=== PATIENT | female | born 1990 | race Caucasian/White ===

== ENCOUNTER 2017-09-15 11:36 | Day surgery (SDC) | payer BC ==
[2017-09-15 12:14] VITALS: BP 114/69; TEMP 98.6; BMI 30.4
--- NOTE | 2017-09-15 12:36 | PDOC.LDHP ---
Labor and Delivery H&P Chief complaint: other (headaches and vision changes) HPI: 27 yo G1 @ 35.1wks presents with vision changes and a headache since this morning. Denies hx of hypertension. Describes her headache as posterior, dull, constant and her vision changes as seeing spots. Denies hx of chronic hypertension. Denies compications in . She has a remote hx of a DVT which she taks lovenox for. Denies LOF, ctx, vaginal bleeding, discharge, dysuria. Endorses good FM. Current gestational age (weeks): 35 (35.1) Grav: 1 Para: 0 Current complications: other (Hx of DVT on lovenox) Past Medical History: Hx of DVT on lovenox Current medications: other (Lovenox) Previous surgical history: none Allergies/Adverse Reactions: Allergies Allergy/AdvReac Type Severity Reaction Status Date / Time amoxicillin Allergy Severe Rash Verified 09/15/17 12:14 Penicillins Allergy Severe Rash Verified 09/15/17 12:14 Social history: none - Physical Exam Vital signs reviewed and normal: yes General: NAD, resting Heart: RRR Lungs: CTAB Abdomen: gravid Extremeties: trace edema FHT: category 1 [place] contractions every: 3 - Plan -: 27 yo G1 @ 35.1wks presents with vision changes and a headache since this morning, admitted for obs with concern for preE. 1.)sIUP- -pt is hilda every 3 minutes, but she does not feel her contractions -will encourage PO hydration -will order a UA to look for asymptomatic bacteruria 2.)Migraine -bp wnl -UA to evaluate protein level -tylenol and reglan prn headache - Review of Systems General: reports: other (headache). denies: fever/chills, weight/appetite/ sleep changes Eyes: reports: vision changes ENT: denies: nasal congestion, rhinorrhea Respiratory: denies: cough, congestion, shortness of breath Cardiovascular: denies: chest pain, palpitation, edema Gastrointestinal: denies: nausea, vomiting, diarrhea, abdominal pain Genitourinary: denies: dysuria, polyuria Skin: denies: rashes, lesions, jaundice Musculoskeletal: denies: pain, tenderness Neurological: denies: numbness, syncope Psychological: denies: anxiety, depression
[2017-09-15 13:32] LABS: Bilirubin Negative (Negative); Blood, Urine Negative (Negative); Clarity CLEAR (Clear); Glucose, Urine (Dipstick) Negative (Negative); Leukocyte Negative (Negative); Nitrite Negative (Negative); Protein, Urine (Dipstick) Negative (Neg-Trace); Specific Gravity, Urine 1.003 (1.002-1.036); Urobilinogen 0.2 mg/dL (0.2-1.0)
[2017-09-15 13:40] LABS: Bacteria/HPF None Seen HPF (None Seen); Hyaline Casts/LPF 0-3 HYALINE CAST LPF (0-3 Hyaline); Pathc Cast-AUWi Flag 0.14 (0-2.49); RBC/HPF None Seen HPF (0-3); Squamous Epithelial 0-3 HPF (0-3); WBC/HPF None Seen HPF (0-3)
== END 2017-09-15 14:18 | disposition home or self-care (01) ==
LOC: L&D/OP 11:36
PROVIDERS: ATTEND Obstetrics & Gynecology
DX: O99.353 Diseases of the nervous system complicating pregnancy, third trimester (principal); G43.909 Migraine, unspecified, not intractable, without status migrainosus; O99.89 Other specified diseases and conditions complicating pregnancy, childbirth and the puerperium; H53.9 Unspecified visual disturbance; Z86.718 Personal history of other venous thrombosis and embolism; Z79.899 Other long term (current) drug therapy; Z88.0 Allergy status to penicillin; Z3A.35 35 weeks gestation of pregnancy
CPT/HCPCS: 81001; 99283

== ENCOUNTER 2017-09-27 20:30 | Day surgery (SDC) | payer BC ==
[2017-09-27 20:58] VITALS: BP 123/72; TEMP 99.3; BMI 30.5
--- NOTE | 2017-09-27 22:31 | PDOC.EVN ---
Event Note - Event Note Event Note: H&P Dictated In brief, here for R/O labor at 36 weeks 6 days. Patient on UFH 10,000 units BID for HX DVT on OCPs in 2011 CX was /-2/C/I, which was unchanged from friday. OK for outpatient care. Info on UFH given, per ACOG, by me.
--- NOTE | 2017-09-27 22:59 | HP ---
TIME OF EVALUATION: 2200 to 2220 hours. TIME OF DICTATION: 2225 hours. LOCATION: Labor and Delivery Triage REASON FOR EVALUATION: Suspected onset of labor, the patient on unfractionated heparin. HISTORY OF PRESENT ILLNESS: In brief, this is a patient of Dr. Eaton, who is a 27-year-old at 36 weeks and 6 days, here for possible contractions. She was checked in the office on Friday and sh e was 2 cm dilated, 80% effaced, -1 station. She is on unfractionated heparin 10,000 units b.i.d. fo r history of a DVT in her cath in 2011 when she was on control pills. She was previously on Lo venox and switched to unfractionated heparin at 36 weeks per protocol. PAST MEDICAL HISTORY: Significant for the DVT in 2011 while on estrogen containing contraception. PAST SURGICAL HISTORY: Knee surgeries. SOCIAL HISTORY: AMOXICILLIN and PENICILLIN. OB HISTORY: She is a primigravida with an EDC of 10/19/2017. PHYSICAL EXAMINATION: VITAL SIGNS: Blood pressure 122/72, pulse is 80, temperature is 99.3. GENERAL: She is in no acute distress. The uterus is soft and nontender. There is no evidence of va ginal bleeding or gross evidence of rupture. Cervical exam by me reveals cervix of 2/80/-2/cephalic/ intact with no vaginal bleeding. This exam is basically unchanged from what she was in the office by her report. Monitors heart tones are in the 140s to 150s with moderate variability and aceler ations. There is no pathological decelerations. Intrapartum, this was classified as category 1. Th ere is no contractions that are seen on tocodynamometer that are suspicious for labor. ASSESSMENT: 1. This is a patient with threatened labor at 36 weeks and 6 days, currently on unfractionat ed heparin for deep venous thrombosis prophylaxis. She is on 10,000 units b.i.d. 2. There is no evidence of active labor. 3. I reviewed with her the ACOG thrombophilia guidance, which recommends unfractionated heparin at 3 6 weeks with possible reversal if onset of labor occurs and/or scheduled induction to better time dis continuation of unfractionated heparin. We also discussed protamine sulfate. 4. I advised the patient to that as there is no evidence of active labor at this time, she continues taking her prophylaxis and that she returns for evaluation within 48 hours (which is Friday) with he r physician to discuss timing of delivery.
== END 2017-09-27 22:30 | disposition home or self-care (01) ==
LOC: L&D/OP 20:30
PROVIDERS: ATTEND Obstetrics & Gynecology
DX: O60.03 Preterm labor without delivery, third trimester (principal); Z3A.36 36 weeks gestation of pregnancy
CPT/HCPCS: 99283

== ENCOUNTER 2017-09-30 12:05 | Observation (INO) | payer BC ==
[2017-09-30] MEDS: Lactated Ringer's 1,000 ML IV SCH ×3 (12:55→19:40)
[2017-09-30] MEDS ORDERED: Ondansetron HCl/PF 4 MG/2 ML Vial ONE (13:03)
--- NOTE | 2017-09-30 13:13 | PDOC.LDHP ---
Labor and Delivery H&P Chief complaint: contractions, other HPI: 27 yo WF presents c/o UCs, nausea and emesis since this AM. Current gestational age (weeks): 37 Due date: 10/19/17 Dating criteria: last menstrual period Grav: 1 Para: 0 Current complications: other (h/o DVT 2011, currently on heparin 10K BID, last dose this AM.) Abnormal US findings: No Past Medical History: DVT Current medications: pre-vladimir vitamins, other (Heparin as above) Previous surgical history: other (knee x4) Allergies/Adverse Reactions: Allergies Allergy/AdvReac Type Severity Reaction Status Date / Time amoxicillin Allergy Severe Rash Verified 09/15/17 12:14 Penicillins Allergy Severe Rash Verified 09/15/17 12:14 Social history: none - Physical Exam Vital signs reviewed and normal: yes General: breathing through contractions Lungs: nonlabored breathing Abdomen: gravid Extremeties: trace edema FHT: variability present (baseline 170-180's) - Vaginal Exam cm dilated: 2 Effacement: 75% - OB Labs Blood type: A RH: positive HIV: negative HEPSAg: negative - Assessment 37 week IUP N/V, UCs but no cervical change h/o DVT on Heparin +GBS - Plan -: Observe IVF bolus with labs ,Zofran. Will reverse Heparin and start ABX for GBS if changes cervix or for operatve delivery.
[2017-09-30 13:22] VITALS: BMI 30.5
[2017-09-30 13:27] LABS: #Basophils 0.1 thou/uL (0.0-0.2); #Eosinphils 0.1 thou/uL (0.0-0.7); #Lymphocytes 2.1 thou/uL (1.20-3.40); #Monocytes 0.7 thou/uL (0.11-0.59); #Neutrophils 11.3 thou/uL (1.40-6.50); %Basophils 0.9 % (0.0-1.0); %Eosinophils 0.8 % (0.0-10.0); %Lymphocytes 14.3 % (21.0-51.0); %Monocytes 5.1 % (0.0-10.0); Hemoglobin 12.6 g/dL (12.0-16.0); Mean Corpuscular HGB CONC 33.6 g/dL (32.0-36.0); Mean Corpuscular Hemoglobin 29.6 pg (27.0-31.0); Mean Corpuscular Volume 88.2 fL (78.0-98.0); Platelet Count 175 thou/uL (130-400); RBC Distribution Width 12.2 % (11.5-14.5); Red Blood Cell (RBC) Count 4.24 mill/uL (4.20-5.40); White Blood Cell (WBC) Count 14.3 thou/uL (4.8-10.8)
[2017-09-30] MEDS ORDERED: Butorphanol Tartrate 1 MG/ML VIAL ONE (13:42)
[2017-09-30 13:56] LABS: ALT (SGPT) 20 U/L (8-55); AST (SGOT) 17 U/L (5-34); Albumin 3.5 g/dL (3.5-5.0); Alkaline Phosphatase 147 U/L (40-150); Anion Gap 14 mmol/L (10-20); BUN (Urea Nitrogen) 5 mg/dL (7.0-18.7); Bilirubin, Total 0.2 mg/dL (0.2-1.2); Calc. Creatinine Clearance 217 mL/min (70-130); Calcium 9.2 mg/dL (7.8-10.44); Carbon Dioxide 20 mmol/L (22-29); Chloride 108 mmol/L (98-107); Estimated GFR-MDRD Greater than 90; Globulin 2.4 g/dL (2.4-3.5); Glucose 75 mg/dL (70-105); Potassium 3.3 mmol/L (3.5-5.1); Protein, Total 5.9 g/dL (6.0-8.3); Sodium 139 mmol/L (136-145)
[2017-09-30] MEDS ORDERED: Ondansetron HCl/PF 4 MG in Sodium Chloride 0.9% 50 ML IVPB SCH (14:00)
--- NOTE | 2017-09-30 15:02 | PDOC.EVN ---
Event Note - Event Note Event Note: Continues to c/o of UCs. FHTs now 150's post Stadol. No decels. UCs q 7 min. Labs: WBC= 14.3, H/H= 12/37, plts= 175. Na= 139, K= 3.3, Cr= .56, AST/ALT= 17/20 , AP= 147. Will continue IVF, antiemetics as needed. Dr. Roper aware, to see pt. later.
[2017-09-30] MEDS ORDERED: Acetaminophen 500 MG TAB PO PRN (17:12)
[2017-09-30] MEDS ORDERED: Promethazine HCl 25 MG/ML VIAL IM PRN (17:12)
--- NOTE | 2017-09-30 17:23 | PDOC.EVN ---
Event Note - Event Note Event Note: Continues to c/o of UCs. SVE 3cm per labor RN. FHTs 150s, stable, GBTBV. UCs q 5 mins[address] Orders for OBS Dr. Simpson aware.
[2017-09-30 20:25] VITALS: TEMP 98.3
[2017-09-30] MEDS ORDERED: CEFAZOLIN 2 GM in Sodium Chloride 0.9% 100 ML IVPB SCH (20:30)
[2017-09-30] MEDS ORDERED: CEFAZOLIN/Water 2 GM/20 ML SYRINGE SLOW IVP SCH (20:45)
[2017-09-30] MEDS: Butorphanol Tartrate 1 MG/ML VIAL SLOW IVP PRN (21:03)
[2017-09-30] MEDS: Ondansetron HCl/PF 4 MG/2 ML Vial IVP PRN (21:03)
[2017-10-01] MEDS: Ondansetron HCl/PF 4 MG/2 ML Vial IVP PRN (02:16)
[2017-10-01] MEDS: Butorphanol Tartrate 1 MG/ML VIAL SLOW IVP PRN ×2 (02:16→06:09)
[2017-10-01] MEDS ORDERED: CEFAZOLIN 1 GM in Sodium Chloride 0.9% 100 ML IVPB SCH (05:00)
[2017-10-01] MEDS: Lactated Ringer's 1,000 ML IV SCH (05:21)
[2017-10-01 07:27] VITALS: BP 108/70
--- NOTE | 2017-10-01 12:17 | PDOC.LDPN ---
Labor & Delivery Progress Note - Subjective Subjective: other (occasional painful ctx ) - Objective Vital signs reviewed and normal: yes General: NAD Uterine fundus: non tender SVE: cephalic Dilation: 2 Effacement: 75% Station: -2 FHT: category 1 (130s, mod gerardo, +accels, no decels ) [place] contractions every: irregular this AM - Assessment (1) 37 weeks gestation of Code(s): Z3A.37 - 37 WEEKS GESTATION OF Status: Acute (2) False labor Code(s): O47.9 - FALSE LABOR, UNSPECIFIED Status: Acute -: SVE unchanged during admission (also same for me last week). Fetus reassuring after IVF. D/C home as false labor. L&D warnings reviewed. Advised can resume Heparin unless ctx worsen. Will check coags and SVE in clinic tomorrow.
--- NOTE | 2017-10-01 13:45 | DIS ---
DATE OF ADMISSION: 09/30/2017 DATE OF DISCHARGE: 10/01/2017 ADMISSION DIAGNOSES: 1. A 37-week intrauterine . 2. Contractions. 3. tachycardia noted on admission. 4. History of a deep venous thrombosis. DISCHARGE DIAGNOSES: 1. A 37-week intrauterine . 2. False labor. 3. Resolution of tachycardia with IV fluid hydration. ADMISSION PHYSICIAN: Dr. Jono Shafer M.D. DISCHARGE PHYSICIAN: Whitley Eaton D.O. BRIEF HOSPITAL COURSE: Ms. Jaz Jones is a 27-year-old at 37 weeks who presented to Labor and Delivery with complaints of contractions. The patient was also noted to have tachycardia which she was given IV fluids for which subsequently resolved. Her contractions have decreased throughout the evening after pain medication and her tachycardia resolved. The heart tones have been reassuring. Her vaginal exam has remained unchanged, she is still 2 cm this morning. Due to these findings, the patient was discharged home with labor and delivery warning. The patient also has a history of DVT and is on heparin. The patient was advised to hold anticoagulation if she feels that her contractions worsen and she is going into labor. FOLLOWUP: Follow up in 1 day. ACTIVITY RESTRICTIONS: None. DIET: Regular. CODE: Full. MTDD
== END 2017-10-01 08:25 | disposition home health service (06) ==
LOC: L&D/OP 12:05 → L&D 17:57
PROVIDERS: ADMIT Obstetrics & Gynecology; ATTEND Obstetrics & Gynecology
DX: O47.1 False labor at or after 37 completed weeks of gestation (principal); O76 Abnormality in fetal heart rate and rhythm complicating labor and delivery; O99.820 Streptococcus B carrier state complicating pregnancy; Z3A.37 37 weeks gestation of pregnancy; Z86.718 Personal history of other venous thrombosis and embolism; Z79.899 Other long term (current) drug therapy; Z88.0 Allergy status to penicillin
CPT/HCPCS: 80053; 85025; 86850; 86900; 86901; 96361; 96374; 96375; 96376; 99285; G0378; J0595; J0690; J2405; J7050

== ENCOUNTER 2018-03-29 19:05 | Emergency (ER) | payer BC ==
[2018-03-29] MEDS ORDERED: Ondansetron PF 4 MG/2 ML Vial ONE ×2 (19:33→21:19)
[2018-03-29 19:41] LABS: #Basophils 0.1 thou/uL (0.0-0.2); #Eosinphils 0.2 thou/uL (0.0-0.7); #Monocytes 0.6 thou/uL (0.11-0.59); #Neutrophils 10.3 thou/uL (1.40-6.50); %Basophils 0.9 % (0.0-1.0); %Eosinophils 1.5 % (0.0-10.0); %Lymphocytes 8.2 % (21.0-51.0); %Monocytes 4.5 % (0.0-10.0); %Neutrophils 84.9 % (42.0-75.0); Hemoglobin 17.9 g/dL (12.0-16.0); Mean Corpuscular HGB CONC 34.3 g/dL (32.0-36.0); Mean Corpuscular Hemoglobin 30.5 pg (27.0-31.0); Mean Corpuscular Volume 88.8 fL (78.0-98.0); Mean Platelet Volume 8.2 fL (7.4-10.4); Platelet Count 267 thou/uL (130-400); RBC Distribution Width 11.3 % (11.5-14.5); Red Blood Cell (RBC) Count 5.87 mill/uL (4.20-5.40); White Blood Cell (WBC) Count 12.2 thou/uL (4.8-10.8)
[2018-03-29 19:47] LABS: BHCG - Serum Negative (NEGATIVE); Pregs Control Background? CLEAR/WHITE (CLR/WHITE); Pregs Control Bar Appear? YES (CONTROL BAR)
[2018-03-29 19:55] LABS: ALT (SGPT) 18 U/L (8-55); AST (SGOT) 18 U/L (5-34); Albumin 4.9 g/dL (3.5-5.0); Alkaline Phosphatase 77 U/L (40-150); Anion Gap 17 mmol/L (10-20); BUN (Urea Nitrogen) 14 mg/dL (7.0-18.7); Bilirubin, Total 0.6 mg/dL (0.2-1.2); Calc. Creatinine Clearance 0 mL/min (70-130); Calcium 9.8 mg/dL (7.8-10.44); Carbon Dioxide 19 mmol/L (22-29); Chloride 108 mmol/L (98-107); Estimated GFR-MDRD 80; Globulin 3.1 g/dL (2.4-3.5); Glucose 120 mg/dL (70-105); Lipase 19 U/L (8-78); Potassium 3.4 mmol/L (3.5-5.1); Sodium 141 mmol/L (136-145)
== END 2018-03-29 23:16 | disposition home or self-care (01) ==
LOC: SCSER 19:05
DX: R11.2 Nausea with vomiting, unspecified (principal); R19.7 Diarrhea, unspecified
CPT/HCPCS: 80053; 83690; 84703; 85025; 93005; 96361; 96372; 96374; 96376; J0500; J2405